=== PATIENT | male | born 1985 | race Caucasian/White ===

== ENCOUNTER 2016-07-01 11:01 | Emergency (ER) | payer OTHER ==
[~2016-07-01] VITALS: Ht 167.6 cm; Wt 73.9 kg
[2016-07-01 11:03] VITALS: BP 134/65
[2016-07-01] MEDS ORDERED: ERYTHROMYCIN OPHTH OINT OS ONE (11:45)
[2016-07-01] MEDS ORDERED: FLUORESCEIN OPHTH 1 MG STRIP OU ONE (11:45)
[2016-07-01] MEDS ORDERED: TETRACAINE 0.5% OPHTH SOLN 4ML OU ONE (11:45)
[2016-07-01] MEDS ORDERED: ERYTOIN8 OS (11:47)
== END 2016-07-01 11:56 | disposition home or self-care (01) ==
LOC: M ED 11:25
DX: S05.02XA Injury of conjunctiva and corneal abrasion without foreign body, left eye, initial encounter (principal); X58.XXXA Exposure to other specified factors, initial encounter; Y92.019 Unspecified place in single-family (private) house as the place of occurrence of the external cause; Y93.89 Activity, other specified; Y99.8 Other external cause status